=== PATIENT | male | born 1950 | race Caucasian/White ===

== ENCOUNTER 2016-03-26 17:28 | Emergency (ER) | payer OTHER ==
[2016-03-26 17:40] VITALS: BP 135/73
--- NOTE | 2016-03-26 18:34 | PROVIDER DOCUMENTATION ---
HPI-General Adult - General Chief Complaint: Flu Symptoms Stated Complaint: FLU LIKE SX Time Seen by Provider: 03/26/16 17:43 Source: patient Allergies/Adverse Reactions: Patient Allergies Allergy/AdvReac Type Severity Reaction Status Date / Time No Known Allergies Allergy Verified 03/26/16 17:47 - History of Present Illness -Gen Adult Nature of Presenting Problems: Pt presents today c complaints of cold and flu-like symptoms for the past 3 days. Reports body aches, mild dry cough and sore throat. No n/v/d. No other issues or complaints. Location of Pain/Injury: reports: generalized Quality of Pain: reports: aching Severity: reports: mild Onset/Duration: reports: 3 days ago Timing: reports: still present Associated Symptoms: reports: cough, fatigue, muscle aches Similar Symptoms Previously?: No Recently seen or treated by another doctor?: No Review of Systems - Adult - REVIEW OF SYSTEMS - ADULT Constitutional: reports: fatique. denies: chills, fever Eyes: reports: no symptoms reported. denies: discharge, dry eyes Ears, Nose, Mouth & Throat: reports: sinus problem, throat pain. denies: ear discharge, ear pain, hoarseness Cardiovascular: reports: no symptoms reported. denies: chest pain, edema Respiratory: reports: cough. denies: chronic cough, pleurisy, shortness of breath Gastrointestinal: reports: no symptoms reported. denies: abdominal pain, hematemesis Genitourinary: reports: no symptoms reported. denies: dysuria, discharge Musculoskeletal: reports: muscle aches. denies: bone pain, back pain Integumentary: reports: no symptoms reported. denies: hives, hair loss Neurological: reports: no symptoms reported. denies: ataxia, dizziness/vertigo Psychiatric: reports: no symptoms reported. denies: anxiety, anti-depressant use Endocrine: reports: no symptoms reported Hematologic/Lymphatic: reports: no symptoms reported Allergic/Immunologic: reports: no symptoms reported All Other Systems: Reviewed and Negative Past History - Adult - PAST MEDICAL HISTORY-ADULT Review of Records: reports: Old Records Reviewed, Nursing Assessment Review, Medications Reviewed, Social history reviewed & non-contributory. Major Childhood Illnesses: reports: denies history Cardiovascular: reports: denies history Respiratory: reports: denies history Gastrointestinal: reports: denies history Obstetrical/Gynecological: reports: denies history Genitourinary: reports: denies history Musculoskeletal: reports: denies history Neurological: reports: denies history Endocrine/Immune: reports: denies history Other Conditions: reports: denies history Physical Exam-General - PHYSICAL EXAM-ADULT Initial Vital Signs Reviewed: Yes - CONSTITUTIONAL General Appearance: appears well, alert, no apparent distress. negative: lethargic, slow to respond - EYES Eyes: PERRL/EOMI, pink conjunctivae - HEAD, EARS, NOSE, MOUTH & THROAT HENMT: normocephalic/atraumatic, moist mucous membranes, normal ENT inspection. negative: pharyngeal erythema, TM abnormal, TM obscurred by cerumen - NECK Neck: non-tender, full range of motion, normal inspection. negative: limited range of motion, lymphadenopathy, meningismus - RESPIRATORY Respiratory: chest non-tender, lungs clear, normal breath sounds, no pleuratic chest pain, no respiratory distress, no accessory muscle use. negative: respiratory distress, decreased breath sounds, accessory muscle use, crackles, rales, rhonchi, stridor, wheezing - CARDIOVASCULAR Cardiovascular: normal peripheral pulses, regular rate, rhythm, no edema. negative: bradycardia, tachycardia - GASTROINTESTINAL (ABDOMEN) Abdominal Exam: normal bowel sounds, non tender, soft - LYMPHATIC Lymphatic: no adenopathy - MUSCULOSKELETAL Back Exam: normal inspection, no CVA tenderness, no vertebral tenderness Extremity: normal range of motion, non-tender, normal gait - SKIN Integumentary: normal color, normal turgor, warm/dry - NEUROLOGIC Neurologic: grossly normal, no motor/sensory deficits - PSYCHIATRIC Psych/Mental Status: normal mood/affect, normal thought content, normal thought process, oriented x 3 Progress - PLAN OF CARE/RESULTS Progress/Plan/Lab Results: Orders Category Date Time Status CHEST-2 VIEWS [RAD] Stat Exams 03/26/16 17:55 Taken DIRECT STREP Stat Lab 03/26/16 17:49 Completed INFLUENZA SCREEN A/B Stat Lab 03/26/16 17:49 Completed Vital Signs Temp Pulse Resp BP Pulse Ox 03/26/16 17:39 98.1 F 87 20 135/73 97 No Known Allergies Allergy (Verified 03/26/16 17:47) - XRAY 1 XRAY Study: Chest XRAY Interpretation: nad Departure - Departure Time of Disposition Order: 18:33 DIAGNOSIS: Acute URI Disposition: HOME 01 Certified Medical Emergency: Urgent Condition: Good Additional Instructions: Take medication as prescribed. Wait 2-3 days before filling antibiotics to see if symptoms resolve on their own. Rest and stay well hydrated. Follow up with your primary care provider. ED Follow Up Instructions: You have been treated by a care provider in the Emergency Department. These instructions are being provided to you so you can have an understanding of how to care for yourself upon discharge. Upon discharge from the Emergency Department, you are responsible for making arrangements for follow-up care by a physician of your choice. Take all prescribed medications as directed. Return to the Emergency Department immediately for any new or worsening symptoms. You may call the Physician Referral phone number at [phone] to obtain a list of Physicians who are taking new patients. Prescriptions: Guaifenesin/D-Methorphan Hb/PE [Deconex Dmx Tablet] 1 each PO TID #30 tablet Azithromycin [Zithromax Z-Barney] 250 mg PO DIRECTED #1 pkg Referrals: Khanh Medrano MD [Primary Care Provider] - Attestation - Physician/ Mid-level Attestation Patient care was provided by Mid-level provider (DRAFTER ASSISTANT/PA):: Yes Mid-level provider:: Janusz Cortez Mid-level documentation review:: The Mid-level provider documentation, treatment plan and medical decision making was reviewed by the physician who agrees with all treatment and medical decision making by the MLP.
--- NOTE | 2016-03-27 06:56 | Diag Imaging Result Document ---
PROCEDURE NAME: CHEST-2 VIEWS - 03/26/2016 FRONTAL AND LATERAL CHEST, TWO VIEWS: COMPARISON: No comparison films. FINDINGS: The lungs are hyperexpanded. Mild increased AP diameter to the chest. The pulmonary vessels are small. The heart is not enlarged. No pleural effusions. No infiltrates. Mild scoliosis. IMPRESSION: 1. No pneumonia. 2. Emphysema.
== END 2016-03-26 19:30 | disposition home or self-care (01) ==
LOC: ED 17:28
DX: J06.9 Acute upper respiratory infection, unspecified (principal); M79.1 Myalgia; R05 Cough; J02.9 Acute pharyngitis, unspecified; R53.83 Other fatigue
CPT/HCPCS: 71020; 87081; 87430; 87804; 99283

== ENCOUNTER 2019-04-28 16:39 | Inpatient (IN) ==
[2019-04-28] MEDS ORDERED: TYLENOL PO PRN (18:15)
[2019-04-28] MEDS ORDERED: NS 1,000 ML IV ONE (18:15)
[2019-04-28] MEDS: ROCEPHIN 1 GM in NS 50 ML IV SCH (18:44)
[2019-04-28] MEDS: SOLU-MEDROL IV SCH (18:46)
[2019-04-28 19:08] LABS: BASO# 0.03 X1000 (0.0-0.2); BASO% 0.3 % (0.0-0.8); EOS% 2.7 % (0.0-10.0); HEMATOCRIT 36.1 % (42.0-52.0); HEMOGLOBIN 11.4 g/dL (14.0-18.0); IMM GRAN# 0.04 X1000 (0.0-0.04); IMM GRAN% 0.4 % (0.0-0.5); LYMPH# 2.27 X1000 (1.2-3.4); LYMPH% 20.4 % (20.5-51.1); MCH 26.1 PG (27-31); MCHC 31.6 g/dL (33-37); MCV 82.8 FL (81-99); MONO% 7.2 % (1.7-9.3); MPV 9.1 FL (7.4-10.4); NEUT# 7.71 X1000 (1.4-6.5); PLT 350 X1000 (130-400); RBC 4.36 XMIL (4.7-6.1); RDW 16.1 % (11.5-14.5); WBC 11.15 X1000 (4.8-10.8)
[2019-04-28 19:14] LABS: PROTIME 13.3 Seconds (11.0-16.0)
[2019-04-28 19:15] LABS: PTT 28.9 Seconds (22.3-41.8)
[2019-04-28 19:29] LABS: AGAP 12; ALB/GLOB RATIO 0.8; ALBUMIN 3.1 g/dL (3.5-5.0); ALKALINE PHOSPHATASE 75 U/L (32-122); BUN 13 mg/dL (8-22); CALCIUM 8.8 mg/dL (8.8-10.2); CHLORIDE 102 mmol/L (98-107); COSMO 276; CREATININE 0.9 mg/dL (0.7-1.2); ESTIMATED GFR > 60; GLUCOSE 94 mg/dL (70-104); GOT 12 U/L (10-34); GPT 17 U/L (10-44); POTASSIUM 4.1 mmol/L (3.5-5.1); SODIUM 138 mmol/L (136-145); TCO2 24 mmol/L (25-35); TOTAL BILIRUBIN 0.24 mg/dL (0.20-1.00); TOTAL PROTEIN 7.1 g/dL (6.3-8.3)
--- NOTE | 2019-04-28 19:48 | Diag Imaging Result Doc PS360 ---
CHEST-2 VIEWS - 04/28/2019 INDICATION: Pneumonia COMPARISON: 04/14/2019 FINDINGS: There has been slight decrease in the left upper lobe infiltrate. Stable left sided hilar mass. There is worsening infiltrate in the left midlung and left lung base. Heart size is normal. No pneumothorax or pleural effusion. IMPRESSION: Mixed changes, with overall worsening from prior. Electronically signed by Abdoulaye Allen 04/28/2019 7:45 PM
[2019-04-28] MEDS: ALBUTEROL NEB INH SCH ×2 (20:04→22:43)
[2019-04-28] MEDS: ATROVENT NEB INH SCH ×2 (20:04→22:43)
[2019-04-28] MEDS: NS 1,000 ML IV SCH (21:05)
[2019-04-28] MEDS: DOXYCYCLINE 100 MG in NS 250 ML IV SCH (21:05)
[2019-04-28 21:16] LABS: URINE SOURCE CLEAN CATCH
[2019-04-28 21:20] LABS: BILIRUBIN URINE NEGATIVE (NEGATIVE); BLOOD URINE TRACE (NEGATIVE); COLOR YELLOW; GLUCOSE URINE NEGATIVE (NEGATIVE); KETONE URINE NEGATIVE (NEGATIVE); LEUKOCYTES URINE NEGATIVE (NEGATIVE); NITRITE URINE NEGATIVE (NEGATIVE); PROTEIN URINE TRACE mg/dL (NEGATIVE); SP GRAVITY URINE 1.026; TURBIDITY URINE CLEAR (CLEAR); UROBILINOGEN URINE NORMAL (NORMAL)
[2019-04-28 21:32] LABS: UR EPITHELIAL CELLS <10 /HPF (<10); URINE BACTERIA NEGATIVE /HPF; URINE RBC <10 /HPF (<10); URINE WBC <10 /HPF (<10)
--- NOTE | 2019-04-28 21:56 | HISTORY AND PHYSICAL ---
PRIMARY CARE PHYSICIAN: Dr. Khanh Medrano. CHIEF COMPLAINT: Cough, congestion. HISTORY OF PRESENT ILLNESS: A 68-year-old white male with a complicated past medical history presents for evaluation of above-mentioned symptoms. Pertinent history of present illness began in mid March. At that time, patient states he developed cough and congestion. He attempted symptomatic management without improvement. On 04/14/2018 he was seen in [facility] emergency department. A chest x-ray at that time suggested pneumonia and possible hilar mass. He was treated with levofloxacin, steroids and ProAir HFA. Unfortunately, patient has not achieved significant improvement in his overall symptoms. He presented to my office today for further evaluation and management. At present time, he continues to complain of nonproductive cough, shortness of breath, wheezing and profound weakness. Over the course of the last 3 weeks he has lost 12 pounds. He denies hemoptysis. He has had multiple potential sick exposures. Because of his progressive illness as well as concern for a hilar mass, patient will be admitted to the hospital for full evaluation and management. PAST MEDICAL HISTORY: 1. Abnormal electrocardiogram with left axis, anterior fascicular block. 2. Multiple actinic keratoses and seborrheic keratoses. 3. A longstanding history of intermittent hematochezia secondary to hemorrhoids. 4. Depression/anxiety. 5. Benign prostatic hypertrophy. 6. Hypertension. 7. Hypertriglyceridemia. 8. Hyperlipidemia. 9. Impaired fasting glucose. 10. Right inguinal hernia status post surgical intervention. 11. Chronic low back pain. 12. Longstanding tobacco use. CURRENT MEDICATIONS: None. ALLERGIES: Patient answered no known drug allergies. SOCIAL HISTORY: The patient smoked as much as 1 pack per day beginning at age 16. He discontinued smoking 3 weeks ago. He occasionally uses alcohol. He denies illicit drug use. He is retired from . He enjoys fishing, farming, and baby-sitting grandchildren. FAMILY HISTORY: Patient's father passed at age 91 secondary to complications of "old age." He had a history of prostate cancer, stroke, and an acute myocardial infarction. Patient's mother passed at age 86 secondary to complications of lung and gynecological cancer. Patient's brother passed secondary to complications of colon cancer. REVIEW OF SYSTEMS: A 12-point review of systems was performed. Pertinent positives and negatives are noted history present illness. PHYSICAL EXAMINATION: VITAL SIGNS: Temperature 98.3 degrees, heart rate 69, respirations 18, blood pressure is 145/82. GENERAL: No acute distress. HEENT: Normocephalic, atraumatic. Pupils equal, round, reactive to light. Extraocular muscles intact. Sclerae anicteric. [place] conjunctivae. Oral and nasopharynx clear without exudate. NECK: Supple. No lymphadenopathy. No thyromegaly. No bruits auscultated. CARDIOVASCULAR: Regular rate and rhythm. No significant murmurs, rubs, or gallops. PULMONARY: Distant breath sounds. Wheezing throughout bilateral lung sherman. Compromised air movement. ABDOMEN: Soft, nontender, nondistended. Positive bowel sounds. EXTREMITIES: Moves all extremities well. No significant clubbing, cyanosis or edema. NEUROLOGIC: Cranial nerves 2-12 grossly intact. Motor and sensory grossly intact. PSYCHOLOGIC: Appropriate. LABORATORY DATA: White blood cell count 11.15, hemoglobin 11.4, hematocrit 36.1, platelet count 350,000. PT 13.3, INR is 1.0, PTT is 28.9. Sodium 138, potassium 4.1, chloride 102, bicarb 24, BUN 13, creatinine 0.9, glucose 94, calcium 8.8, total bilirubin 0.24, total protein 7.1, albumin 3.1, alkaline phosphatase 75, AST 12, ALT 17. ASSESSMENT AND PLAN: A 68-year-old white male with a complicated past medical history presents for evaluation of above-mentioned symptoms. Unfortunately, this is a 1st time I have seen the patient since 2016. He recently was evaluated in the emergency department as described above. Pneumonia was diagnosed. Chest x-ray suggests a hilar mass, possibly representing postobstructive pneumonia. Chest x-ray today suggests worsening from his previous despite antibiotic intervention. Patient will be admitted to the hospital for full evaluation and management. 1. Admit to General Medicine. 2. Community-acquired pneumonia, possibly postobstructive-the patient was treated with levofloxacin as an outpatient without improvement. The patient will be started on Rocephin and doxycycline therapy. We will treat COPD exacerbation as described below. We will further investigate possible hilar mass as described below as well. We will encourage incentive spirometry. 3. Hilar mass-this is quite concerning in a patient with a prolonged history of tobacco use. He has lost approximately 13 pounds over the last 3 weeks. We will hydrate patient overnight and start antibiotic intervention as described. We will schedule a CT scan in the morning. We will determine if further pulmonary consultation is appropriate. 4. Acute exacerbation of chronic obstructive pulmonary disease-in the setting of a prolonged tobacco history and distant breath sounds on examination, patient has presumed chronic obstructive pulmonary disease. Today, diffuse bronchospasm is identified. We will start patient on steroid therapy and bronchodilators. We will encourage incentive spirometry. We will follow this closely as well. 5. Hypertension-patient has been treated with antibiotic intervention in the past. He currently is taking no medications. We will monitor patient's blood pressure while hospitalized. We will determine if initiating reinitiating medications is appropriate. 6. Hyperlipidemia/hypertriglyceridemia-patient has been treated with atorvastatin therapy in the past. He currently is taking no medications. We will defer further management to outpatient setting. 7. Impaired fasting glucose-we will follow patient with blood sugars while hospitalized. 8. Low back pain-we will treat patient with as needed Tylenol. 9. Fluid, electrolytes, nutrition. We will monitor electrolytes. Normal saline at 50 mL an hour. Regular diet. 10. Prophylaxis. Patient will be placed on SCDs as he may require a lung biopsy in the near future. cc: Khanh Medrano MD
[2019-04-29] MEDS: SOLU-MEDROL IV SCH ×4 (02:15→17:18)
[2019-04-29] MEDS: ALBUTEROL NEB INH SCH (03:45)
[2019-04-29] MEDS: ATROVENT NEB INH SCH (03:46)
[2019-04-29] MEDS: DUONEB (A & A) INH SCH ×5 (07:54→22:31)
[2019-04-29] MEDS: DOXYCYCLINE 100 MG in NS 250 ML IV SCH ×2 (09:00→20:21)
[2019-04-29] MEDS ORDERED: NS 50 ML ONE (10:21)
--- NOTE | 2019-04-29 10:35 | Diag Imaging Result Doc PS360 ---
EXAM: CT THORAX W/CONTRAST 04/29/2019 HISTORY: pneumonia/ possible hilar mass TECHNIQUE: This exam was performed using automated exposure control, adjustment of mA or kV according to patient size, and/or use of iterative reconstruction technique. COMMENT: There are no previous studies available for comparison. There is a mass in the upper left hilum extending into the aorticopulmonary window. This measures at least 4.6 cm in diameter. There is extrinsic compression of the left upper lobe bronchus, with patchy opacities in the left upper lobe and alveolar opacity in the left lower lobe. The left lower lobe bronchus is patent. The left upper lobe is generally oligemic compared to the right upper lobe. The left upper lobe pulmonary artery is obstructed either due to compression or invasion. There is marked extrinsic compression of the lower lobe branches on the left. There are no filling defects in the pulmonary artery branches otherwise. There are some nonspecific aorticopulmonary window and paratracheal nodes otherwise. There is extensive coronary calcification. There is enlargement of the medial lobe of the right adrenal gland. This may be due to metastasis. There is decreased attenuation of the liver adjacent to the falciform ligament which is probably due to focal fatty change. The regional skeleton is intact. 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 Left upper lobe pulmonary arterial obstruction and extrinsic compression of the left lower lobe artery. Possible right adrenal metastasis. Electronically signed by Peng Cortes 04/29/2019 10:33 AM
[2019-04-29] MEDS: NS 1,000 ML IV SCH (15:22)
[2019-04-29] MEDS: ROCEPHIN 1 GM in NS 50 ML IV SCH (17:17)
[2019-04-29] MEDS: PHENERGAN IV PRN (20:40)
--- NOTE | 2019-04-29 21:55 | PROGRESS NOTE ---
DATE: 04/29/2019 SUBJECTIVE: The patient was admitted yesterday with pneumonia, possibly postobstructive. A hilar mass was noted on chest x-ray. The patient was started on broad-spectrum antibiotics. Additionally, patient was noted to have diffuse bronchospasm consistent with a COPD exacerbation. Overnight, with aggressive intervention for each, the patient's condition improved. Upon my arrival, patient states he rested well. He denies fevers and chills. His cough, congestion, and shortness of breath are slightly improved. The patient was sent for a CT scan this morning, returning with a left hilar bronchogenic carcinoma with postobstructive pneumonitis in the left upper and lower lobes, left upper lobe pulmonary arterial obstruction and extrinsic compression of the left lower lobe artery. Possible right adrenal metastasis was identified. Upon my arrival this evening, the patient was with his and daughter. We discussed his CT scan findings. The patient voiced good understanding. Overall clinically, he states he has demonstrated some improvement with aggressive intervention. OBJECTIVE: Vital Signs: T-max 98.3, heart rate 61 to 87, respirations 17 to 18, blood pressure 122 to 145 over 64 to 82. General: No acute distress. Cardiovascular: Regular rate and rhythm. No significant murmurs, rubs, or gallops. Pulmonary: Distant breath sounds. Improving air movement. Occasional wheeze bilaterally. Abdomen: Soft, nontender, nondistended. Positive bowel sounds. Extremities: Moves all extremities well. No significant clubbing, cyanosis, or edema. Dermatologic: Evaluation reveals no evidence of rash. LABORATORY DATA: None. ASSESSMENT AND PLAN: 1. Postobstructive pneumonia - The patient is currently being treated with Rocephin and doxycycline therapy. Overall, symptoms are slowly improving. We will address probable bronchogenic carcinoma as described below. 2. Hilar mass/bronchogenic carcinoma - As above, I discussed this in detail with patient and family. We will consult Dr. Liu. Further intervention will be determined per pulmonary evaluation. 3. Acute exacerbation of chronic obstructive pulmonary disease - The patient does appear to be moving air more freely than yesterday. We will continue Rocephin, doxycycline, Solu-Medrol, and bronchodilators. We will encourage incentive spirometry. 4. Hypertension -The patient's blood pressure is under reasonable control without medical intervention. We will remain aware. 5. Hyperlipidemia/hypertriglyceridemia - Patient no longer is being treated with statin intervention. We will consider resuming this as an outpatient. 6. Impaired fasting glucose - The patient's blood sugar upon admission was within normal limits. We will remain aware. 7. Chronic low back pain -We will continue as needed Tylenol therapy. 8. Disposition. At this point, patient continues to require snf care in a hospital setting. We will plan discharge home once appropriate. cc: Khanh Medrano MD
[2019-04-30] MEDS: SOLU-MEDROL IV SCH ×4 (01:14→18:44)
[2019-04-30] MEDS: DUONEB (A & A) INH SCH ×6 (03:42→22:40)
[2019-04-30 08:39] LABS: AGAP 12; ALB/GLOB RATIO 0.8; ALBUMIN 3.1 g/dL (3.5-5.0); ALKALINE PHOSPHATASE 64 U/L (32-122); BASO# 0.01 X1000 (0.0-0.2); BASO% 0.1 % (0.0-0.8); BUN 8 mg/dL (8-22); CALCIUM 8.8 mg/dL (8.8-10.2); CHLORIDE 104 mmol/L (98-107); COSMO 277; CREATININE 0.6 mg/dL (0.7-1.2); ESTIMATED GFR > 60; GLUCOSE 119 mg/dL (70-104); GOT 13 U/L (10-34); GPT 19 U/L (10-44); HEMATOCRIT 35.1 % (42.0-52.0); HEMOGLOBIN 10.9 g/dL (14.0-18.0); IMM GRAN# 0.02 X1000 (0.0-0.04); IMM GRAN% 0.1 % (0.0-0.5); LYMPH# 1.11 X1000 (1.2-3.4); LYMPH% 8.2 % (20.5-51.1); MCH 25.7 PG (27-31); MCHC 31.1 g/dL (33-37); MCV 82.8 FL (81-99); MONO% 3.7 % (1.7-9.3); MPV 9.3 FL (7.4-10.4); NEUT# 11.91 X1000 (1.4-6.5); NEUT% 87.9 % (42.2-75.2); PLT 336 X1000 (130-400); POTASSIUM 4.1 mmol/L (3.5-5.1); RBC 4.24 XMIL (4.7-6.1); SODIUM 139 mmol/L (136-145); TCO2 23 mmol/L (25-35); TOTAL BILIRUBIN 0.15 mg/dL (0.20-1.00); TOTAL PROTEIN 6.8 g/dL (6.3-8.3); WBC 13.55 X1000 (4.8-10.8)
[2019-04-30] MEDS: DOXYCYCLINE 100 MG in NS 250 ML IV SCH ×2 (08:49→22:08)
[2019-04-30 10:27] LABS: LYMPHS 4 % (21-51); SEGS 96 % (42-75)
[2019-04-30] MEDS: ROCEPHIN 1 GM in NS 50 ML IV SCH (18:44)
[2019-04-30] MEDS: NS 1,000 ML IV SCH (18:44)
--- NOTE | 2019-04-30 18:59 | PROGRESS NOTE ---
DATE: 04/29/2019 SUBJECTIVE: Overnight, patient states he rested reasonably well. This morning, patient continues to have slow improvement in his acute pulmonary illness. He notes decreasing cough, congestion, and wheezing. Energy level is slowly improving. P.o. intake also is improving. He denies fevers, chills, nausea, vomiting, or chest discomfort. He is prepared to pursue further evaluation of probable bronchogenic carcinoma. OBJECTIVE: Vital signs: T-max 98.4 degrees, heart rate 75 to 87, respirations 18 to 24, blood pressure 135 to 164 over 72 to 81. General: No acute distress. Cardiovascular: Regular rate and rhythm. No significant murmurs, rubs, or gallops. Pulmonary: Improving air movement, wheezing bilaterally decreased. Abdomen: Soft, nontender, nondistended. Positive bowel sounds. Extremities: Moves all extremities well. No significant clubbing, cyanosis, or edema. Dermatologic: Evaluation reveals no evidence of rash. LABORATORY DATA: White blood cell count 13.55, hemoglobin 10.9, hematocrit 35.1, platelet count 336,000, sodium 139, potassium 4.1, chloride 104, bicarb 23, BUN 8, creatinine 0.6, glucose 119, calcium 8.8, total bilirubin 0.15, total protein 6.8, albumin 3.1, alkaline phosphatase 64, AST 13, ALT 19. ASSESSMENT AND PLAN: 1. Postobstructive pneumonia--Patient is currently being treated with Rocephin and doxycycline therapy. Symptoms are slowly improving. We will continue treatment of this and acute exacerbation of chronic obstructive pulmonary disease as described below. We will further investigate hilar mass as described below as well. 2. Acute exacerbation of chronic obstructive pulmonary disease--With the addition of Rocephin, doxycycline, Solu-Medrol, and bronchodilators, patient is having improved air movement. He continues, however, to have wheezing. For now, we will continue his current regimen. We will encourage incentive spirometry and aspiration precautions. We will hold off any steroid tapers at present time. 3. Hilar mass/bronchogenic carcinoma--I discussed this in detail with the patient and his family yesterday. Dr. Liu will be consulted. Further evaluation will be determined by his recommendations. The patient likely will require a biopsy in the near future. 4. Hypertension--The patient's blood pressure is elevated today. Historically, he has been treated as an outpatient but is not taking medications at present time. We will follow his blood pressures while hospitalized. We will determine if resuming medical intervention is warranted. 5. Hyperlipidemia/hypertriglyceridemia--This is historical. He has stopped medical intervention as an outpatient. As an outpatient, we likely will need to resume therapy. 6. Impaired fasting glucose--We will continue to follow blood sugars while hospitalized. He currently requires no medical intervention. 7. Chronic low back pain--We will continue patient on as-needed Tylenol. 8. Disposition--At this point, patient continues to require fci care in a hospital setting. We will plan discharge home once appropriate. cc: Khanh Medrano MD
--- NOTE | 2019-04-30 21:45 | PULMONOLOGY CONSULTATION ---
DATE: 04/30/2019 REQUESTING CLINICIAN: Dr. Khanh Medrano. REASON FOR CONSULTATION: Lung mass. HISTORY OF PRESENT ILLNESS: Mr. Orta is a 68-year-old white male with a greater than 50 pack- year history for tobacco (nonsmoker for 3-4 weeks) who reports he has not been feeling well for over a month. He does report he has had a change in his voice over the last 2-3 weeks. The patient was evaluated in the emergency room 04/14/2019, he reports primarily because he was feeling poorly. He denied fevers, chills, significant cough or hemoptysis. Chest x-ray revealed a left hilar mass. He was evaluated by Dr. Medrano and subsequently admitted to the hospital, and a CT scan performed today reveals some apparent bowing of the left vocal cord with a 4.6 cm hilar mass extending into the aortopulmonary window with oligemia of the left upper lobe. There was enlargement of the right adrenal gland. There was pneumonitis/nonspecific parenchymal infiltrates in the left lower lobe. PAST MEDICAL HISTORY/PROBLEM LIST: 1. History of skin cancer removal. 2. History of hemorrhoids. 3. BPH. 4. Hypertension with no current medications. 5. Dyslipidemia. 6. Status post right inguinal hernia repair. 7. Chronic low back pain. 8. History of significant alcohol use, which he reports he stopped several years ago. SOCIAL HISTORY: Recent discontinuation of tobacco as per above. He is retired from , and previously worked at [employer] and finished his last 5 years in [place]. FAMILY HISTORY: Father had prostate cancer and was on hormone suppression by his description. Mother had a gynecologic/female cancer, which he cannot further identify. REVIEW OF SYSTEMS: As noted in the HPI but is otherwise negative. PHYSICAL EXAMINATION: General: Reveals a thin white male resting comfortably, in no acute distress. He has a slight coarseness to his voice. Vital Signs: The patient has been afebrile for the last 24 hours. Blood pressure 165/81, heart rate 88, respiratory rate 24, oxygen saturation 98%. HEENT: Pupils are equal and reactive. Oropharynx is clear. Neck: Supple without definite adenopathy. Chest: Reveals good air entry bilaterally with slight decreased breath sounds, left apex. Cardiac Exam: S1-S2. Abdomen: Soft. Extremities: Without edema. LABORATORIES: White blood count 11.15, hemoglobin 11.4, platelet count 350,000. Sodium 139, potassium 4.1, chloride 104, bicarbonate 23, BUN 8, creatinine 0.6, glucose 3.9. IMPRESSION: A 68-year-old with extensive tobacco history who has: 1. Lung mass. 2. 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 3. 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 4. Abnormal weight loss. 5. Nicotine addiction/tobacco use. PLAN: 1. N.p.o. after midnight. 2. Bronchoscopy with endobronchial biopsies. After reviewing his scan, I suspect that he will have tumor in the apical posterior segment of the left upper lobe with associated obstruction. cc: MD Khanh Somers MD
[2019-04-30] MEDS: PHENERGAN IV PRN (22:56)
[2019-05-01] MEDS: SOLU-MEDROL IV SCH ×3 (02:10→17:40)
[2019-05-01] MEDS: DUONEB (A & A) INH SCH ×6 (05:06→23:42)
[2019-05-01] MEDS ORDERED: DIPRIVAN 1% 500 MG/50 ML BOTTLE ONE (06:57)
[2019-05-01] MEDS ORDERED: FENTANYL ONE (06:57)
[2019-05-01] MEDS: DOXYCYCLINE 100 MG in NS 250 ML IV SCH ×2 (08:41→22:05)
[2019-05-01] MEDS ORDERED: XYLOCAINE 2% ONE (09:56)
[2019-05-01] MEDS ORDERED: XYLOCAINE 2% VISCOUS ONE (09:56)
[2019-05-01] MEDS ORDERED: SODIUM CHLORIDE 0.9% 20 ML ONE (09:56)
[2019-05-01] MEDS ORDERED: EPINEPHRINE ONE (09:56)
--- NOTE | 2019-05-01 13:35 | OPERATIVE NOTE ---
PROCEDURE DATE: 05/01/2019 PROCEDURE: Bronchoscopy with endobronchial biopsies. CLINICAL INDICATIONS: 68-year-old with extensive tobacco history with left hilar mass. DESCRIPTION OF PROCEDURE: After informed consent was obtained, patient was brought to the holding area. The patient was identified in the holding area and all questions were answered before he proceeded to the operating room where the procedure was performed. Prior to the procedure, a time- out was performed with verification of the patient information. All agree with the procedure including the patient. Topical anesthesia was achieved with viscous lidocaine to the right and the left nostril with 2% lidocaine instilled above and below the vocal cords. Sedation was achieved by monitored anesthesia care provided by the anesthesia group. When topical anesthesia and monitored anesthesia care were achieved, bronchoscope was advanced through the left nostril to the level of the vocal cords. The left vocal cord was paralyzed. The right for cord did move to the midline. The bronchoscope was advanced through the vocal cords into the trachea. There was increase in clear gelatinous secretions the tracheobronchial tree. Airways to the right and left mainstem, right upper lobe, right middle lobe and right lower lobe were patent to the limit of visualization of the bronchoscope. The bronchoscope was directed to the left side. Prior to the entrance of the left upper lobe tumor could be seen on the distal left mainstem. The apical posterior segment was completely obliterated by tumor. Video images were obtained. The segment to the anterior left upper lobe was narrowed and likely involved by tumor as well. Airways to the lingula and left lower lobe were patent. Multiple biopsies were taken from the tumor facing the left upper lobe. Minor bleeding occurred which was controlled with topical epinephrine. Following the biopsies, a brushing was performed. The patient tolerated the procedure without difficulty. IMPRESSION: 1. Paralyzed left vocal cord. 2. Chronic bronchitic secretions noted in the airways. 3. Tumor obstructing the apical posterior segment of the left upper lobe as outlined above. cc: MD Khanh Somers MD
[2019-05-01] MEDS: ROCEPHIN 1 GM in NS 50 ML IV SCH (17:50)
--- NOTE | 2019-05-01 23:46 | PROGRESS NOTE ---
DATE: 05/01/2019 SUBJECTIVE: Upon my arrival this morning, patient states overall he is feeling reasonably well. His cough, congestion, and wheezing had decreased. He was prepared for bronchoscopy. The patient was taken for bronchoscopy and this was performed without incident. Patient tolerated this well. This evening, patient is sitting upright in a chair. He notes improving strength. He has tolerated his medical regimen very well. He denies fevers, chills, nausea, vomiting, or chest discomfort. OBJECTIVE: Vital Signs: T-max 98.8 degrees, heart rate 62 to 101, respirations 14 to 15, blood pressure 146-162/65-86. General: Well nourished, well developed, no acute distress. Cardiovascular: Regular rate and rhythm. No significant murmurs, rubs, or gallops. Pulmonary: Prolonged expiratory phase. Adequate air movement. No significant wheezing. Abdomen: Soft, nontender, nondistended. Positive bowel sounds. Extremities: Moves all extremities well. No significant clubbing, cyanosis, or edema. Dermatologic: Evaluation reveals no evidence of rash. LABORATORY DATA: None. ASSESSMENT AND PLAN: 1. Postobstructive pneumonia. Patient is currently being treated with Rocephin and doxycycline therapy. Clinically, he is improving. We will continue his current regimen for now. We will consider transitioning to oral antibiotics at discharge. 2. Acute exacerbation of chronic obstructive pulmonary disease. The patient has achieved improvement in his overall condition with Rocephin, doxycycline, Solu-Medrol, and bronchodilators. As his condition has improved considerably, we will begin a steroid taper. Patient may be prepared for discharge as soon as tomorrow. We will continue to encourage incentive spirometry and aspiration precautions. 3. Hilar mass/bronchogenic carcinoma. Bronchoscopy confirmed a concerning mass. Pathology is pending. We will determine further intervention depending on final pathology. 4. Hypertension. The patient's blood pressure is elevated. Patient self discontinued medications as an outpatient. We likely will resume intervention at discharge. 5. Hyperlipidemia/hypertriglyceridemia. Unfortunately, patient has discontinued statin intervention as well. We will plan to re-evaluate this as an outpatient. 6. Impaired fasting glucose. Once again, this is historical. We will remain aware. Blood sugars have been reasonably controlled while hospitalized. 7. Chronic low back pain. Symptoms are reasonably controlled with as needed Tylenol. 8. Disposition. At this point, patient continues to require custodial care in a hospital setting. We will plan discharge home once appropriate. cc: Khanh Medrano MD
[2019-05-02] MEDS: DUONEB (A & A) INH SCH ×4 (03:47→15:47)
[2019-05-02] MEDS: SOLU-MEDROL IV SCH ×2 (05:11→17:20)
[2019-05-02 08:31] LABS: BASO# 0.01 X1000 (0.0-0.2); BASO% 0.1 % (0.0-0.8); EOS# 0.01 X1000 (0.0-0.7); EOS% 0.1 % (0.0-10.0); HEMATOCRIT 36.6 % (42.0-52.0); HEMOGLOBIN 11.2 g/dL (14.0-18.0); IMM GRAN# 0.07 X1000 (0.0-0.04); IMM GRAN% 0.6 % (0.0-0.5); LYMPH# 1.09 X1000 (1.2-3.4); LYMPH% 8.7 % (20.5-51.1); MCH 25.4 PG (27-31); MCHC 30.6 g/dL (33-37); MONO# 0.51 X1000 (0.11-0.59); MONO% 4.1 % (1.7-9.3); MPV 8.9 FL (7.4-10.4); NEUT# 10.89 X1000 (1.4-6.5); NEUT% 86.4 % (42.2-75.2); PLT 343 X1000 (130-400); RBC 4.41 XMIL (4.7-6.1); WBC 12.58 X1000 (4.8-10.8)
[2019-05-02] MEDS: DOXYCYCLINE 100 MG in NS 250 ML IV SCH (08:38)
[2019-05-02 08:55] LABS: AGAP 11; ALB/GLOB RATIO 0.9; ALBUMIN 3.1 g/dL (3.5-5.0); ALKALINE PHOSPHATASE 62 U/L (32-122); BUN 14 mg/dL (8-22); CALCIUM 8.9 mg/dL (8.8-10.2); CHLORIDE 104 mmol/L (98-107); COSMO 284; CREATININE 0.7 mg/dL (0.7-1.2); ESTIMATED GFR > 60; GLUCOSE 143 mg/dL (70-104); GOT 18 U/L (10-34); GPT 36 U/L (10-44); POTASSIUM 4.3 mmol/L (3.5-5.1); SODIUM 141 mmol/L (136-145); TCO2 26 mmol/L (25-35); TOTAL BILIRUBIN 0.23 mg/dL (0.20-1.00); TOTAL PROTEIN 6.5 g/dL (6.3-8.3)
--- NOTE | 2019-05-02 16:44 | HEMO/ONC CONSULTATION ---
DATE: 05/02/2019 REQUESTING PHYSICIAN: Khanh Medrano MD REASON FOR CONSULTATION: New suspected lung cancer. HISTORY OF PRESENT ILLNESS: Mr. Orta had noted increasing shortness of breath and wheezing recently and was seen by Dr. Medrano for further evaluation. Apparently, he had been in the emergency room a few weeks before and diagnosed with pneumonia but was not aware of a hilar mass that was noted at that time. Dr. Medrano sent him for chest CT and admitted to the hospital for antibiotics and oxygen support. Chest CT 04/29/2019 showed a left hilar bronchogenic carcinoma 4.6 cm with extrinsic compression of the left upper lobe bronchus with patchy opacities in the left upper lobe as well as some left upper lobe pulmonary artery compression/invasion and large medial part of the right adrenal gland suspicious for possible metastasis. Patient is on IV antibiotics and nebs and has been seen by Dr. Liu and underwent bronchoscopy yesterday for biopsy. Results of that are pending. PAST MEDICAL HISTORY: Significant for hernia, BPH, nonmelanoma skin cancer, COPD and recent pneumonia. PAST SURGICAL HISTORY: Hernia repair, skin cancer resection. ALLERGIES: Patient has no known drug allergies. MEDICATIONS: Reviewed per the chart. SOCIAL HISTORY: The patient smoked 1 pack per day for 50 years but quit 5 weeks ago. He used to drink social alcohol but none in the last few years. FAMILY MEDICAL HISTORY: Mom in her 90s with gynecologic cancer. Dad in his 90s with prostate cancer. Brother had colon cancer with a history of Agent Phenix exposure as well. ECOG performance status is a 1. Pain score is a 0. PHYSICAL EXAMINATION: General: This is a chronically ill-appearing man in no acute distress. He is unaccompanied at the bedside at the time of consultation. Vital signs: Temperature, the patient is afebrile at 98.9, pulse 85, respiratory rate 18, blood pressure 140/65, O2 saturation as 93% on 2 L via nasal cannula. Eyes: Sclerae anicteric. Cardiovascular: Regular rate and rhythm. Normal S1, S2. No murmurs, rubs, or gallops. Pulmonary: Diffuse rhonchi and bronchial breath sounds in the left lung field. No wheezing. Gastrointestinal: Abdomen is soft, nontender, nondistended with normoactive bowel sounds. Extremities: No clubbing, cyanosis, or edema. 2+ pulses x4. Neurological: Alert and oriented x3. Patient's gait was not assessed as he is in the hospital bed at the time of consultation. Rest of examination is unremarkable. LABORATORY DATA: Sodium 141. White count 12.58, hemoglobin 11.2, platelet count 343,000. IMAGING: Chest CT 04/29/2019 with left hilar bronchogenic carcinoma 4.6 cm with extrinsic compression of the left upper lobe bronchus with patchy opacities in left upper lobe as well as left upper lobe pulmonary artery compression/invasion with an enlarged medial right adrenal lobe suspicious for metastasis. ASSESSMENT AND PLAN: 1. Suspected left upper lobe bronchogenic carcinoma: I will check CEA and LDH. I will set him up for outpatient brain MRI and PET scan. I will see him back in the clinic within 7 days for results of all that testing to determine further evaluation and treatment planning. He has what appears to be unresectable disease locally in the left upper lobe. He has possible right adrenal metastasis as below. 2. Chronic obstructive pulmonary disease exacerbation: Continue antibiotics and steroids as per Dr. Medrano. Reassess at outpatient followup. 3. Possible postobstructive pneumonia: He is clinically improving on antibiotics. Continue the same. Continue to monitor. 4. Right adrenal abnormality on scan: PET scan for further evaluation. Follow up as an outpatient. Thank you for this consultation and the opportunity to participate in the care of this patient. I will follow up with him as an outpatient and discuss goals of care, staging and treatment. cc: MD Khanh Oliva MD
[2019-05-02 17:18] VITALS: BP 150/78
[2019-05-02] MEDS: ROCEPHIN 1 GM in NS 50 ML IV SCH (17:20)
--- NOTE | 2019-05-02 20:08 | DISCHARGE SUMMARY ---
ADMISSION DATE: 04/28/2019 DISCHARGE DATE: 05/02/2019 ADMISSION DIAGNOSES: 1. Cough. 2. Congestion. DISCHARGE DIAGNOSES: 1. Postobstructive pneumonia. 2. Acute exacerbation of chronic obstructive pulmonary disease. 3. Hilar mass with initial pathology consistent with non-small cell cancer. 4. Hypertension, present on arrival. 5. Hyperlipidemia/hypertriglyceridemia, present on arrival. 6. Impaired fasting glucose, present on arrival. 7. Chronic low back pain, present on arrival. CONSULTATIONS: 1. Dr. Liu with Pulmonary Medicine was consulted for further evaluation and management of hilar mass. 2. Dr. Santoyo with Oncology was consulted for further evaluation and management of hilar mass/non- small cell lung cancer PROCEDURES: 1. CT scan of the chest was performed on 04/29/2019 which revealed a left hilar bronchogenic carcinoma with post obstructive pneumonitis in the left upper and lower lobes. Left upper lobe pulmonary arterial obstruction and extrinsic compression of the left lower lobe artery. Possible right adrenal metastasis. 2. Bronchoscopy was performed on 05/01/2019 which revealed a paralyzed left vocal cord. Chronic bronchitic secretions noted in the airways. Tumor obstructing the apical posterior segment of the left upper lobe. HISTORY AND PHYSICAL EXAMINATION: See admit note. PHYSICAL EXAMINATION PRIOR TO DISCHARGE: Temperature 97.7 degrees, heart rate 75, respirations 18, blood pressure is 150/78. General: Well nourished, well developed, no acute distress. Cardiovascular: Regular rate and rhythm. No significant murmurs, rubs, or gallops. Pulmonary: Distant breath sounds. Adequate air movement. Abdomen: Soft, nontender, nondistended. Positive bowel sounds. Extremities: Moves all extremities well. No significant clubbing, cyanosis, or edema. Dermatologic: Evaluation reveals no evidence of rash. LABORATORY DATA: White blood cell count 12.58, hemoglobin 11.2, hematocrit 36.6, platelet count 343,000. Sodium 141, potassium 4.3, chloride 104, bicarb 26, BUN 14, creatinine 0.7, glucose 143, calcium 8.9, total bilirubin 0.23, total protein 6.5, albumin 3.1, alkaline phosphatase 62, AST 18, ALT 36, LDH 175. CEA 3.7. HOSPITAL COURSE: The patient was admitted as per history and physical examination. Hospital course per condition is as follows. 1. Postobstructive pneumonia-upon admission, patient was immediately started on Rocephin and doxycycline therapy. He tolerated this quite well. With treatment of this as well as acute exacerbation of chronic obstructive pulmonary disease, patient's overall condition rapidly improved. At time of discharge, he was afebrile. He will be discharged home with 7 additional days of cefdinir and doxycycline therapy. We will treat acute exacerbation of chronic obstructive pulmonary disease as described below. 2. Acute exacerbation of chronic obstructive pulmonary disease-the patient was treated with Rocephin, doxycycline, Solu-Medrol, and bronchodilators while hospitalized. As above, he achieved a rapid improvement. The patient will be transitioned home with antibiotics as described above. We will start patient on a prednisone taper at 40 mg decreasing 5 mg daily until off. We will continue ProAir HFA as needed. We will follow this as an outpatient as well. 3. Hilar mass/bronchogenic carcinoma/non-small cell lung cancer-as above, CT scan was quite concerning. Bronchoscopy confirmed an obstructing mass. Initial pathology suggests a non- small cell lung cancer. Dr. Santoyo was consulted. Further staging will be performed next week with plans for intervention thereafter. The patient and his family understand the potential diagnosis and the gravity of this current situation. 4. Hypertension-patient's blood pressure has been labile while hospitalized. He does have a history of hypertension having been treated with losartan in the past. I have asked patient to keep a log of his blood pressure between now and next visit in office in 1 to 2 weeks. We will determine if resuming losartan is necessary. 5. Hyperlipidemia/hypertriglyceridemia-patient has been treated with atorvastatin in the past. We will plan to follow this up as an outpatient. 6. Impaired fasting glucose-once again, this is historical. He is treated nonmedically. We will follow this as an outpatient as well. 7. Chronic low back pain-the patient's symptoms were reasonably controlled with as-needed Tylenol while hospitalized. DISCHARGE CONDITION: Stable. DISPOSITION: Discharge to home. MEDICATIONS: 1. Cefdinir 300 mg twice daily for 7 days. 2. Doxycycline 100 mg twice daily for 7 days. 3. Prednisone 40 mg day 1 decreasing 5 mg daily until off. 4. Tylenol 650 mg every 6 hours as needed. 5. Trazodone 50 mg 1 to 2 tablets at bedtime as needed. 6. Albuterol 2 puffs every 6 hours as needed. 7. Mucinex DM twice daily. FOLLOWUP: Patient is to follow with me in approximately 1 to 2 weeks. Patient is to follow up with Dr. Liu as arranged. Patient is to follow up with Dr. Santoyo as arranged. cc: Khanh Medrano MD
--- NOTE | 2019-05-02 21:47 | PULMONOLOGY PROGRESS NOTE ---
DATE: 05/02/2019 SUBJECTIVE: The patient is awake, alert, and conversant. He is without complaints. OBJECTIVE: Vital Signs: The patient has been afebrile for the last 24 hours. Blood pressure 113/69, heart rate 81, respiratory rate 18, oxygen saturation 96%. HEENT: Pupils are equal and reactive. Oropharynx appears clear. Neck: Supple. Chest: Reveals decreased breath sounds left apex. Cardiac: S1-S2. Abdomen: Soft. Extremities: Without edema. LABORATORIES: Bronchial washings reveal normal des. Preliminary biopsy is a non-small cell carcinoma, squamous cell carcinoma suspected by the pathologist. IMPRESSION: A 68-year-old with 1. Vocal cord paralysis. 2. Left hilar mass. 3. Non-small cell lung cancer identified on endobronchial biopsies. DISCUSSION: A 68-year-old with problems outlined above. With the left hilar mass, vocal cord paralysis, he is not a surgical candidate. PLAN: 1. Await Oncology evaluation. 2. Anticipate outpatient PET scan. 3. From a pulmonary standpoint, patient can be discharged home. cc: MD Khanh Somers MD
== END 2019-05-02 17:59 | disposition home or self-care (01) | DRG 180 ==
LOC: DIRADM 16:39 → 3N 17:55
PROVIDERS: ADMIT Internal Medicine; ATTEND Internal Medicine